=== PATIENT | male | born 1975 | race American Indian/Alaskan Native ===

== ENCOUNTER 2016-11-19 10:38 | Emergency (ER) | payer OTHER ==
[2016-11-19] MEDS ORDERED: PEPCID IV ONE ×2 (10:43→10:45)
[2016-11-19] MEDS ORDERED: ADRENALINE P/F IM ONE (10:46)
--- NOTE | 2016-11-19 10:46 | Emergency Department Report ---
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 Patient was outside and was stung twice in the face. He developed some significant swelling. In addition he had some difficult debriding on EMS arrival. His staff at work gave him 50 mg of Benadryl. He has no other symptoms in the emergency department. Epinephrine was not given by EMS. MD Complaint: allergic reaction -: Sudden Exposure: insect bite Symptoms: rash, difficulty breathing Severity: severe Treatment Prior to Arrival: benadryl Previous Allergy History: anaphylaxis, intubation - Related Data Previous Rx's Medication Instructions Recorded Last Taken Type EPINEPHrine (NF) [Epipen (Nf)] 0.3 mg IM ONCE PRN #1 syringekit 11/19/16 Unknown Rx Famotidine [Pepcid] 20 mg PO BID #10 tablet 11/19/16 Unknown Rx diphenhydrAMINE [Benadryl CAP] 25 mg PO Q6HR PRN #30 capsule 11/19/16 Unknown Rx predniSONE [Deltasone] 40 mg PO QDAY #10 tablet 11/19/16 Unknown Rx Allergies Allergy/AdvReac Type Severity Reaction Status Date / Time No Known Allergies Allergy Verified 11/19/16 10:52 ED Review of Systems ROS: Stated complaint: BEE STING TO FACE Other details as noted in HPI Comment: All other systems reviewed and negative Constitutional: denies: chills, fever Eyes: denies: eye pain, eye discharge, vision change ENT: denies: ear pain, throat pain Respiratory: denies: cough, shortness of breath, wheezing Cardiovascular: denies: chest pain, palpitations Endocrine: no symptoms reported Gastrointestinal: denies: abdominal pain, nausea, diarrhea Genitourinary: denies: urgency, dysuria Musculoskeletal: denies: back pain, joint swelling, arthralgia Skin: denies: rash, lesions Neurological: denies: headache, weakness, paresthesias Psychiatric: denies: anxiety, depression Hematological/Lymphatic: denies: easy bleeding, easy bruising ED Past Medical Hx - Past Medical History Previous Medical History?: Yes Additional medical history: anaphylaxis - Medications Home Medications: Home Medications Medication Instructions Recorded Confirmed Last Taken Type EPINEPHrine (NF) [Epipen (Nf)] 0.3 mg IM ONCE PRN #1 syringekit 11/19/16 Unknown Rx Famotidine [Pepcid] 20 mg PO BID #10 tablet 11/19/16 Unknown Rx diphenhydrAMINE [Benadryl CAP] 25 mg PO Q6HR PRN #30 capsule 11/19/16 Unknown Rx predniSONE [Deltasone] 40 mg PO QDAY #10 tablet 11/19/16 Unknown Rx ED Physical Exam - General General appearance: alert, in no apparent distress - Head Head exam: Present: atraumatic, other (periorbital swelling bilaterally) - Eye Eye exam: Present: normal appearance - ENT ENT exam: Present: mucous membranes moist - Neck Neck exam: Present: normal inspection. Absent: meningismus - Respiratory Respiratory exam: Present: normal lung sounds bilaterally. Absent: respiratory distress, wheezes, rales, chest wall tenderness, accessory muscle use - Cardiovascular Cardiovascular Exam: Present: regular rate, normal rhythm. Absent: systolic murmur, diastolic murmur, rubs, gallop - GI/Abdominal GI/Abdominal exam: Present: soft, normal bowel sounds - Rectal Rectal exam: Present: deferred - Extremities Exam Extremities exam: Present: normal inspection - Back Exam Back exam: Present: normal inspection - Neurological Exam Neurological exam: Present: alert, oriented X3 - Psychiatric Psychiatric exam: Present: normal affect, normal mood - Skin Skin exam: Present: warm, dry, intact, normal color, urticaria. Absent: rash ED Course Vital Signs 11/19/16 11/19/16 11/19/16 10:42 10:44 10:45 Temperature 98.2 F Pulse Rate 54 L 49 L Respiratory 16 18 16 Rate Blood Pressure 163/109 163/95 Blood Pressure [Right] O2 Sat by Pulse 98 99 Oximetry 11/19/16 11/19/16 11/19/16 11:01 11:15 11:31 Temperature Pulse Rate 55 L 46 L 64 Respiratory 10 L 22 17 Rate Blood Pressure 151/92 163/95 164/85 Blood Pressure [Right] O2 Sat by Pulse 98 98 99 Oximetry 11/19/16 14:26 Temperature Pulse Rate 58 L Respiratory 18 Rate Blood Pressure Blood Pressure 144/81 [Right] O2 Sat by Pulse 99 Oximetry ED Medical Decision Making - Medical Decision Making 41-year-old male with a history of significant reaction to insect sting several months ago here with recurrent sting to the face at 10 AM. Patient with obvious facial swelling. He initially complained of some shortness of breath but was given 50 mg of Benadryl with resolution of the symptoms. He currently has some significant swelling in the face and initially had no other symptoms. Plan to administer Solu-Medrol and Pepcid IV. On reassessment patient started vomiting. Plan to administer 0.3 mg of epinephrine IM. Given his history of intubation and ICU stay we'll need to monitor very closely. Suspect need to admit. Reassessments with patient improvement. Discussed with patient option of admission versus discharge. Patient might be discharged. I feel this is appropriate given that the patient has had improvement since 11 AM. Discussed the need to start follow-up with an stunt woman. Patient will be discharged with an EpiPen. Portions of this chart were dictated with dictation software. There may be dictation errors contained within this note. Critical Care Time: Yes Critical care time in (mins) excluding proc time.: 35 Critical care attestation.: If time is entered above; I have spent that time in minutes in the direct care of this critically ill patient, excluding procedure time. Critical Care Time: 35 ED Disposition Clinical Impression: Anaphylactic reaction, Allergic reaction Disposition: DC-01 TO HOME OR SELFCARE Is pt being admited?: No Condition: Stable Instructions: Anaphylaxis (ED) Additional Instructions: Please follow up with an stunt woman. Should you have a recurrent reaction please use your EpiPen immediately and call 911. Prescriptions: diphenhydrAMINE [Benadryl CAP] 25 mg PO Q6HR PRN #30 capsule PRN Reason: Allergy Symptoms EPINEPHrine (NF) [Epipen (Nf)] 0.3 mg IM ONCE PRN #1 syringekit PRN Reason: Allergic Reaction Famotidine [Pepcid] 20 mg PO BID #10 tablet predniSONE [Deltasone] 40 mg PO QDAY #10 tablet
[2016-11-19] MEDS ORDERED: ZOFRAN IV ONE (10:47)
[2016-11-19] MEDS ORDERED: ADRENALIN ONE ×2 (10:53→10:54)
--- NOTE | 2016-11-19 13:37 | Admit Criteria Form ---
Admission Criteria Documentation: VENOM EXPOSURE FROM BITE OR STING Clinical Indications for Admission to Inpatient Care (Place 'X' for any and all applicable criteria): Admission is indicated for 1 or more of the following(1)(2)(3)(4): [ ]I Crotaline snake bite (eg, rattlesnake, cottonmouth, copperhead) with ANY ONE of the following(5)(6)(7): [ ]a) Rattlesnake envenomation(8) [ ]b Envenomation requiring antivenom [A] (9) [ ]c) Evidence of coagulopathy (eg, elevated PT/INR/PTT, uncontrolled bleeding) (10) [ ]II. Black spider bite with 1 OR MORE of the following(2)(11)(12): [ ]a) Severe pain requiring acute inpatient management (Continuous or frequent (eg, every 2 to 4 hours) parenteral analgesics [A] OR necessity (ie, alternative approaches not effective) for analgesic regimen that can only be performed or initiated in inpatient setting) [ ]b) Autonomic symptoms, including nausea, vomiting, diaphoresis, hypertension, or tachycardia [ ]c) Severe respiratory findings (respiratory distress, stridor, gross hemoptysis, or acute cyanosis) [ ]d) Severe airflow or ventilation abnormalities (PCO2 >42mmHg, PCO2 increase > 5mmHg, airflow measurement < 60% of previous best or predicted, Required respiratory treatments that are performable only in acute inpatient setting) [ ]III. Brown recluse spider bite with systemic symptoms, including ANY ONE of the following(2)(12)(13): [ ]a) Fever [ ]b) Chills [ ]c) Vomiting or Nausea [ ]d) Severe airflow or ventilation abnormalities (PCO2 >42mmHg, PCO2 increase > 5mmHg, airflow measurement < 60% of previous best or predicted, Required respiratory treatments that are performable only in acute inpatient setting) [ ]e) Hemolysis [ ]f) Rhabdomyolysis [ ]g) Severe respiratory findings (respiratory distress, stridor, gross hemoptysis, or acute cyanosis) [ ]IV. Scorpion sting with systemic symptoms, including 1 or more of the following(15)(16)(17)(18): [ ]a) Severe airflow or ventilation abnormalities (PCO2 >42mmHg, PCO2 increase > 5mmHg, airflow measurement < 60% of previous best or predicted, Required respiratory treatments that are performable only in acute inpatient setting) [ ]b) Severe respiratory findings (respiratory distress, stridor, gross hemoptysis, or acute cyanosis) [ ]c) Pulmonary edema [ ]d) Hypertension [ ]e) Sweating [ ]f) Priapism [ ]g) Mental status changes [ ]h) Fever [ ]i) Neurologic dysfunction (eg, blurred vision, dysphonia, seizure, paralysis) [ ]j) Hemodynamic instability [X]V. Inpatient admission required[B] rather than observation care (Use Venom Exposure from Bite or Sting: Observation Care Criteria as appropriate) because 1 or more of the following(7)(11)(17)(19)(20)(21)(22)(23): [ ]a) Expansion of margin (eg, erythema) around envenomation site [X]b) Hypersensitivity reaction (to bite or antivenin) that is severe or persistent (24)(25)(26) [ ]c) Severe pain requiring acute inpatient management (Continuous or frequent (eg, every 2 to 4 hours) parenteral analgesics [A] OR necessity (ie, alternative approaches not effective) for analgesic regimen that can only be performed or initiated in inpatient setting) [ ]d) Hemodynamic instability [ ]e) Severe respiratory findings (respiratory distress, stridor, gross hemoptysis, or acute cyanosis) [ ]f) Severe airflow or ventilation abnormalities (PCO2 >42mmHg, PCO2 increase > 5mmHg, airflow measurement < 60% of previous best or predicted, Required respiratory treatments that are performable only in acute inpatient setting) [ ]g) Acute renal failure [ ]h) Administration of antivenin that requires monitoring (eg, for anaphylaxis, response) beyond observation care [ ]i) Coagulopathy (eg, elevated PT/INR/PTT, uncontrolled bleeding) [ ]j) Skin necrosis [ ]k) Altered mental status that is severe or persistent [ ]l) Focal neurologic finding or deficit (eg, diplopia, hemiplegia) [ ]m) Vomiting that is severe or persistent [ ]n) Hemolysis [ ]o) Rhabdomyolysis [ ]p) Other condition, treatment, or monitoring requiring inpatient admission .Extended stay beyond goal length of stay may be needed for(7)(40): [ ]a) Compartment syndrome or necrotic tissue(2)(3)(6)(13)(41) [ ]b) Hematologic, liver, renal, respiratory, neurologic, or other abnormalities(6)(17)(33) [ ]c) Continuation of systemic symptoms(14) [ ]d) Immediate hypersensitivity reaction to antivenom(2)(9)(20) The original [facility] content created by [employer] has been revised. The portions of the content which have been revised are identified through the use of italic text or in bold, and [facility] has neither reviewed nor approved the modified material. All other unmodified content is copyright [facility]. Please see references footnoted in the original [facility] edition 2017
[2016-11-19] MEDS ORDERED: MOTRIN PO ONE (14:02)
[2016-11-19 14:58] VITALS: BP 142/95
== END 2016-11-19 14:58 | disposition home or self-care (01) ==
LOC: ED 10:38
DX: T78.2XXA Anaphylactic shock, unspecified, initial encounter (principal); T78.40XA Allergy, unspecified, initial encounter
CPT/HCPCS: 96372; 96374; 96375; 99291; J0171; J2405; J2930